=== PATIENT | female | born 1945 | race Caucasian/White ===

== ENCOUNTER 2016-06-30 12:28 | Emergency (ER) | payer MEDICARE, OTHER ==
[2016-06-30] MEDS ORDERED: KETOROLAC 60 MG/2 ML VIAL IM ONE (14:15)
[2016-06-30] MEDS ORDERED: CYCLOBENZAPRINE 10 MG TAB ONE (14:15)
== END 2016-06-30 15:34 | disposition home or self-care (01) ==
LOC: ER 12:28
DX: M54.5 Low back pain (principal); F17.210 Nicotine dependence, cigarettes, uncomplicated
CPT/HCPCS: 72100; 81001; 96372